=== PATIENT | male | born 1960 | race Caucasian/White ===

== ENCOUNTER 2019-06-01 09:53 | Inpatient (IN) | payer MEDICAID ==
[~2019-06-01] VITALS: Ht 175.3 cm; Wt 90.7 kg
[~2019-06-01 09:53] MED LIST: IBUP-2030 PO; METF-414 PO
[2019-06-01] MEDS ORDERED: SODIUM CHLORIDE 0.9% 1,000 ML IV SCH (11:15)
[2019-06-01] MEDS ORDERED: PROPOFOL 200MG/20ML VIAL IV ONE ×2 (17:12→18:34)
[2019-06-01] MEDS ORDERED: BUPIVACAINE HCL/EPINEPHRINE 0.5%/0.0005 30ML ONE (18:10)
[2019-06-01] MEDS ORDERED: BACITRACIN 50,000 UNITS/VIAL ONE (18:11)
[2019-06-01] MEDS ORDERED: CLINDAMYCIN 900 MG in DEXTROSE 5% WATER 50 ML IV NR (18:30)
[2019-06-01] MEDS ORDERED: NEOSTIGMINE METHYLSULFATE 1MG/ML 10 ML VIAL ONE (18:33)
[2019-06-01] MEDS ORDERED: FENTANYL CITRATE/PF 50MCG/ML 2ML VIAL ONE (18:33)
[2019-06-01] MEDS ORDERED: MIDAZOLAM HCL 2 MG/2 ML VIAL ONE (18:34)
[2019-06-01] MEDS ORDERED: GLYCOPYRROLATE 0.2 MG/ML 2ML VIAL ONE ×2 (18:34→22:30)
[2019-06-01] MEDS ORDERED: ROCURONIUM BROMIDE 10MG/ML VIAL 5ML IV ONE ×3 (18:34→20:56)
[2019-06-01] MEDS ORDERED: DEXAMETHASONE 4MG/ML 1ML VIAL ONE (18:54)
[2019-06-01] MEDS ORDERED: ONDANSETRON HCL 4MG/2ML INJ ONE (18:55)
[2019-06-01] MEDS ORDERED: FENTANYL CITRATE/PF 50MCG/ML 5ML VIAL ONE (18:56)
[2019-06-01] MEDS ORDERED: HYDROMORPHONE HCL/PF 2MG/ML (OR) ONE ×2 (19:33→23:06)
[2019-06-01] MEDS ORDERED: VANCOMYCIN HCL 500 MG/VIAL ONE (21:27)
[2019-06-01] MEDS ORDERED: ONDANSETRON HCL 4MG/2ML INJ IV PRN ×2 (22:30→23:30)
[2019-06-01] MEDS ORDERED: MEPERIDINE HCL/PF 25MG/ML CPJ IV PRN (22:30)
[2019-06-01] MEDS ORDERED: LABETALOL 5MG/ML SYR 20 MG/4 ML SYRINGE IV PRN (22:30)
[2019-06-01] MEDS ORDERED: HYDROMORPHONE HCL/PF 2MG/ML CPJ IV PRN (22:30)
[2019-06-01] MEDS ORDERED: ONDANSETRON INJ IV PRN (23:30)
[2019-06-01] MEDS ORDERED: ACETAMINOPHEN 325MG TABLET PO PRN (23:30)
[2019-06-01] MEDS ORDERED: HYDROCODONE/ACETAMINOPHEN 10/325MG TABLET PO PRN ×2 (23:30)
[2019-06-01] MEDS ORDERED: NALOXONE INJ IV PRN (23:30)
[2019-06-01] MEDS ORDERED: HYDROMORPHONE PCA 10MG/50ML IV PRN (23:30)
[2019-06-01] MEDS ORDERED: HYDROMORPHONE PCA 50 ML IV ONE (23:59)
[2019-06-02] MEDS ORDERED: LABETALOL HCL 5MG/ML VIAL 20ML IV ONE (00:15)
[2019-06-02 01:15] VITALS: BP 154/105
[2019-06-02 01:25] VITALS: BP 150/102
[2019-06-02] MEDS: CLINDAMYCIN 900 MG in DEXTROSE 5% WATER 50 ML IV SCH ×2 (03:16→10:00)
[2019-06-02 04:00] VITALS: BP 151/97
[2019-06-02] MEDS ORDERED: DOCUSATE SODIUM 100MG CAPSULE PO SCH (09:00)
[2019-06-02] MEDS ORDERED: ASPIRIN 325MG EC TABLET PO SCH (09:00)
== END 2019-06-02 16:13 | disposition home or self-care (01) | DRG 315 ==
LOC: OR 09:53 → 6EST 23:44
PROVIDERS: ADMIT Orthopaedic Surgery; ATTEND Orthopaedic Surgery
PROC: 0LQ10ZZ Repair Right Shoulder Tendon, Open Approach (ICD-10-PCS; principal; 2019-06-02)
DX: S46.111A Strain of muscle, fascia and tendon of long head of biceps, right arm, initial encounter (principal); E11.9 Type 2 diabetes mellitus without complications; Z88.0 Allergy status to penicillin; X58.XXXA Exposure to other specified factors, initial encounter; Y93.89 Activity, other specified; Y92.89 Other specified places as the place of occurrence of the external cause; Y99.8 Other external cause status; Z79.4 Long term (current) use of insulin
CPT/HCPCS: 82962; 97166; J0171; J1100; J1170; J2250; J2405; J2704; J2710; J3010; J3370; J3490; J7040; J7060